=== PATIENT | female | born 1990 | race Hispanic/Latino ===

== ENCOUNTER 2024-06-16 15:29 | Emergency (ER) | payer BC ==
[~2024-06-16] VITALS: Ht 149.9 cm; Wt 90.7 kg
[2024-06-16 15:32] VITALS: TEMP 98
[2024-06-16] MEDS: DEXAMETHASONE SOD PHOS 10 MG/1 ML VIAL IV ONE (16:00)
[2024-06-16] MEDS: SODIUM CHLORIDE 0.9% 1000ML 1,000 ML IV STA (16:00)
[2024-06-16 16:03] LABS: BASOPHILS % 0.3 % (0.0-1.0); EOSINOPHILS # (AUTO) 0.1 (0.0-0.4); EOSINOPHILS % 0.4 % (0.0-6.0); HEMATOCRIT 42.2 % (34.2-44.1); LYMPHOCYTES % 42.9 % (18.0-39.1); MEAN CORPUSCULAR HEMOGLOBIN 29.7 pg (28-32); MEAN CORPUSCULAR HGB CONC 33.2 g/dL (31-35); MEAN CORPUSCULAR VOLUME 89.6 fL (81-99); MONOCYTES # (AUTO) 0.6 (0.2-0.8); MONOCYTES % 5.1 % (4.4-11.3); PLATELET COUNT 372 x10e3/uL (140-360); RED BLOOD COUNT 4.71 x10e6/uL (3.6-5.1); RED CELL DISTRIBUTION WIDTH 11.9 % (11.7-14.4); WHITE BLOOD COUNT 11.67 x10e3/uL (4.8-10.8)
[2024-06-16] MEDS: FAMOTIDINE 20 MG/2 ML VIAL IV STA (16:06)
[2024-06-16] MEDS: ACETAMINOPHEN 325 MG TAB PO ONE (16:51)
[2024-06-16 16:52] VITALS: PULSE 105; RESP 16
[2024-06-16 17:02] LABS: ALANINE AMINOTRANSFERASE 35 IU/L (0-55); ALBUMIN 4.2 g/dL (3.5-5.0); ALBUMIN/GLOBULIN RATIO 1.3 (0.8-2.0); ALKALINE PHOSPHATASE 34 IU/L (40-150); ANION GAP 14.2 mmol/L (8-16); BILIRUBIN,TOTAL 0.6 mg/dL (0.2-1.2); BLOOD UREA NITROGEN 13 mg/dL (7-26); BUN/CREATININE RATIO 14 (6-25); CALCIUM 9.4 mg/dL (8.4-10.2); CARBON DIOXIDE 22 mmol/L (22-29); CHLORIDE 105 mmol/L (98-107); CREATININE, SERUM 0.93 mg/dL (0.57-1.11); EST GLOMERULAR FILTRATION RATE 82 ML/MIN (>=60); GLUCOSE 188 mg/dL (74-118); SODIUM 138 mmol/L (136-145); TOTAL PROTEIN 7.5 g/dL (6.5-8.1)
[2024-06-16 17:04] LABS: POTASSIUM 3.2 mmol/L (3.5-5.1)
[2024-06-16] MEDS ORDERED: MEDROL4 M2 PO (17:41)
[2024-06-16] MEDS ORDERED: EPINEPHRIN0.3 MG/0.3 IM (17:43)
[2024-06-16 17:45] VITALS: BP 151/88; PULSE 108; RESP 16; O2SAT 97
== END 2024-06-16 18:11 | disposition home or self-care (01) ==
LOC: ER 15:41
DX: R06.02 Shortness of breath (principal); L27.0 Generalized skin eruption due to drugs and medicaments taken internally; T36.0X5A Adverse effect of penicillins, initial encounter; Z11.52 Encounter for screening for COVID-19
CPT/HCPCS: 36415; 71045; 80053; 84702; 85025; 99284; J1100; J7030; U0002